=== PATIENT | male | born 1995 | race Two or more races ===

== ENCOUNTER 2021-04-13 10:33 | Emergency (ER) | payer OTHER ==
[~2021-04-13] VITALS: Ht 170.2 cm; Wt 93.0 kg
[2021-04-13] MEDS ORDERED: SYMTUZA 800-151 EACH PO (10:42)
== END 2021-04-13 15:56 | disposition home or self-care (01) ==
LOC: ER 10:33
DX: R00.2 Palpitations (principal); R07.89 Other chest pain